=== PATIENT | male | born 2005 | race African-American/Black ===

== ENCOUNTER 2024-07-26 22:27 | Emergency (ER) | payer OTHER ==
[~2024-07-26 22:27] MED LIST: LIDOCAINE PATCH REMOVAL MC SCH
[2024-07-26 22:44] VITALS: TEMP 98.3; BMI 40.6
[2024-07-26] MEDS ORDERED: LIDOCAINE 4% PATCH TP ONE (23:54)
[2024-07-26] MEDS ORDERED: METHOCARBAMOL 500 MG TABLET ONE (23:55)
[2024-07-26] MEDS: LIDOCAINE 5% TOPICAL PATCH TP ONE (23:59)
[2024-07-26] MEDS: METHOCARBAMOL 500 MG TABLET PO ONE (23:59)
[2024-07-27 00:40] VITALS: BP 132/69; PULSE 82; RESP 20
== END 2024-07-27 00:53 | disposition home or self-care (01) ==
LOC: JER 22:27
DX: G56.23 Lesion of ulnar nerve, bilateral upper limbs (principal); R20.0 Anesthesia of skin; R20.2 Paresthesia of skin
CPT/HCPCS: 99283-25